=== PATIENT | male | born 1990 | race Caucasian/White ===

== ENCOUNTER 2016-08-14 15:34 | Emergency (ER) | payer OTHER ==
[~2016-08-14] VITALS: Ht 175.3 cm; Wt 94.1 kg
[2016-08-14] MEDS ORDERED: LORTAB 5-325 M1 EACH PO (16:22)
[2016-08-14 16:51] VITALS: BP 146/69
== END 2016-08-14 16:52 | disposition home or self-care (01) ==
LOC: EME 15:34
PROC: 2W3KX1Z Immobilization of Left Finger using Splint (ICD-10-PCS; principal; 2016-08-14)
DX: S62.613A Displaced fracture of proximal phalanx of left middle finger, initial encounter for closed fracture (principal); S62.615A Displaced fracture of proximal phalanx of left ring finger, initial encounter for closed fracture; Y93.62 Activity, american flag or touch football; X50.1XXA Overexertion from prolonged static or awkward postures, initial encounter
CPT/HCPCS: 73130; 99281; 99284